=== PATIENT | female | born 1990 | race Caucasian/White ===

== ENCOUNTER 2018-02-20 02:52 | Emergency (ER) | payer OTHER ==
--- NOTE | 2018-02-20 03:49 | ED PDOC ---
HPI: Back Time Seen by Provider: 02/20/18 02:54 Chief Complaint (Nursing): Back Pain Chief Complaint (Provider): back pain History Per: Patient History/Exam Limitations: no limitations Onset/Duration Of Symptoms: Days Current Symptoms Are (Timing): Still Present Exacerbating Factor(s): Turning, Movement Additional Complaint(s): 27 y/o female presents for evaluation of low back pain x 4 days. Patient states pain started after doing laundry on Monday, worsened yesterday after lifting heavy juice and felt a "pop" sensation. Patient states pain now radiating down left leg. No improvement with Tylenol. Denies fever, nausea/vomiting, abdominal pain, dysuria, hematuria, bowel/bladder incontinence. Past Medical History Reviewed: Historical Data, Nursing Documentation, Vital Signs Vital Signs: Last Vital Signs Temp 98.1 F 02/20/18 03:11 Pulse 86 02/20/18 03:11 Resp 18 02/20/18 03:11 BP 110/70 02/20/18 03:11 Pulse Ox 98 02/20/18 03:11 - Medical History PMH: No Chronic Diseases - Surgical History Surgical History: No Surg Hx - Family History Family History: States: No Known Family Hx - Living Arrangements Living Arrangements: With Family - Home Medications Home Medications: Ambulatory Orders Medication Instructions Recorded Cyclobenzaprine [Cyclobenzaprine 10 mg PO BID PRN #14 tab 02/20/18 HCl] Naproxen [Naprosyn] 500 mg PO Q12 PRN #20 tablet 02/20/18 traMADol [Ultram] 50 mg PO Q8 PRN #12 tab 02/20/18 - Allergies Allergies/Adverse Reactions: Allergies Allergy/AdvReac Type Severity Reaction Status Date / Time No Known Allergies Allergy Verified 02/20/18 03:14 Review of Systems ROS Statement: Except As Marked, All Systems Reviewed And Found Negative Musculoskeletal: Positive for: Back Pain Physical Exam - Reviewed Nursing Documentation Reviewed: Yes Vital Signs Reviewed: Yes - Physical Exam Appears: Positive for: Well, Non-toxic, Uncomfortable Head Exam: Positive for: ATRAUMATIC, NORMAL INSPECTION, NORMOCEPHALIC Skin: Positive for: Normal Color Eye Exam: Positive for: Normal appearance ENT: Positive for: Normal ENT Inspection Cardiovascular/Chest: Positive for: Regular Rate, Rhythm Respiratory: Positive for: Normal Breath Sounds Gastrointestinal/Abdominal: Positive for: Normal Exam Back: Positive for: Vertebral Tenderness (mid lspine without edema, skin changes, bony deformity), Muscle Spasm (left lspine paravertebral tenderness, left gluteal tenderness). Negative for: L CVA Tenderness, R CVA Tenderness, Decreased ROM Extremity: Positive for: Normal ROM Neurologic/Psych: Positive for: Alert, Oriented (x3). Negative for: Motor/Sensory Deficits - ECG O2 Sat by Pulse Oximetry: 98 - Other Rad xray lspine X-Ray: Viewed By Me X-Ray Interpretation: no acute findings - Progress ED Course And Treament: -Toradol IM -flexeril PO -percocet PO -lspine xray On re-eval, patient reports improvement of pain Patient educated on findings, discharged with rx Naproxen, Flexeril, Tramadol Advised warm compresses, follow up PMD within 2-3 days Return precautions given Disposition - Clinical Impression Clinical Impression: Low back pain, Lumbar radiculopathy - Patient ED Disposition Is Patient to be Admitted: No Counseled Patient/Family Regarding: Studies Performed, Diagnosis, Need For Followup, Rx Given - Disposition Referrals: [facility] [Outside] [facility] [Outside] Disposition: Routine/Home Disposition Time: 05:45 Condition: IMPROVED Prescriptions: Cyclobenzaprine [Cyclobenzaprine HCl] 10 mg PO BID PRN #14 tab PRN Reason: Muscle Spasm Naproxen [Naprosyn] 500 mg PO Q12 PRN #20 tablet PRN Reason: Pain, Moderate (4-7) traMADol [Ultram] 50 mg PO Q8 PRN #12 tab PRN Reason: Pain, Severe (8-10) Instructions: Low Back Pain in Adults, Radiculopathy Forms: [employer] (Indonesian)
[2018-02-20] MEDS ORDERED: Oxycodone/Acetaminophen 5/325 mg Tab PO ONE (04:55)
[2018-02-20 05:57] VITALS: BP 114/74; PULSE 81; RESP 17; TEMP 98; O2SAT 100
--- NOTE | 2018-02-20 12:04 | RAD ---
Date of service: 02/20/2018 PROCEDURE: Radiographs of the Lumbar Spine. HISTORY: low back pain COMPARISON: No prior. FINDINGS: BONES: Normal alignment. No listhesis. No fracture. DISC SPACES: Unremarkable. OTHER FINDINGS: None. IMPRESSION: Unremarkable radiographs of the lumbar spine.
== END 2018-02-20 05:55 | disposition home or self-care (01) ==
LOC: H.ER 02:52
DX: M54.5 Low back pain (principal); M54.16 Radiculopathy, lumbar region
CPT/HCPCS: 72100; 81025; 96372; 99283; J1885

== ENCOUNTER 2018-03-05 00:04 | Emergency (ER) | payer OTHER ==
[2018-03-05 00:23] VITALS: BMI 29.9
[2018-03-05 00:29] VITALS: RESP 18
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
[2018-03-05 02:14] VITALS: BP 112/76; PULSE 77; TEMP 98.4; O2SAT 99
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
== END 2018-03-05 02:15 | disposition home or self-care (01) ==
LOC: H.ER 00:04
DX: M54.5 Low back pain (principal); M54.2 Cervicalgia; V43.52XA Car driver injured in collision with other type car in traffic accident, initial encounter; Y92.410 Unspecified street and highway as the place of occurrence of the external cause

== ENCOUNTER 2018-05-15 23:41 | Emergency (ER) | payer OTHER ==
[2018-05-15 23:42] VITALS: BMI 29.9
[2018-05-15 23:52] VITALS: RESP 16; O2SAT 100
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
[2018-05-16 01:18] LABS: BASO % 0.5 % (0.0-2.0); EOS % 0.7 % (0.0-4.0); HEMOGLOBIN 11.7 g/dL (12.0-16.0); LYMPH # 2.7 K/uL (1.0-4.3); LYMPH % 37.7 % (20.0-40.0); MEAN CELL VOLUME 84.1 fl (81.0-99.0); MEAN CORPUSCULAR HEMOGLOBIN 27.3 pg (27.0-31.0); MEAN CORPUSCULAR HGB CONC 32.5 g/dL (33.0-37.0); MEAN PLATELET VOLUME 8.2 fl (7.2-11.7); MONO # 0.5 K/uL (0.0-0.8); MONO % 6.5 % (0.0-10.0); NEUT # 3.9 K/uL (1.8-7.0); NEUT % 54.6 % (50.0-75.0); NRBC % 0.1 % (0.0-0.0); RBC 4.27 Mil/uL (3.80-5.20); RED CELL DISTRIBUTION WIDTH 14.1 % (11.5-14.5); WHITE BLOOD COUNT 7.1 K/uL (4.8-10.8)
[2018-05-16 01:28] LABS: ALB/GLOB RATIO 1.2 (1.0-2.1); ALBUMIN 3.7 g/dL (3.5-5.0); ALT/SGPT 46 U/L (9-52); AST/SGOT 43 U/L (14-36); BLOOD UREA NITROGEN 8 mg/dl (7-17); GFR NON-AFRICAN AMERICAN > 60
[2018-05-16 01:38] LABS: SQUAMOUS EPITHIAL 1 /hpf (0-5); URINE BACTERIA MOD (<OCC); URINE BILIRUBIN NEGATIVE (NEGATIVE); URINE BLOOD SMALL (NEGATIVE); URINE CLARITY SLIGHTY-CLOUDY (Clear); URINE COLOR YELLOW (YELLOW); URINE GLUCOSE (UA) NEG (NEGATIVE); URINE LEUKOCYTE ESTERASE TRACE Leu/uL (Negative); URINE PROTEIN NEGATIVE (NEGATIVE); URINE UROBILINOGEN 0.2-1.0 mg/dL (0.2-1.0)
[2018-05-16 03:20] VITALS: BP 104/69; PULSE 70; TEMP 98.1
--- NOTE | 2018-05-16 10:52 | US ---
Date of service: 05/16/2018 PROCEDURE: OB Pelvic Ultrasound HISTORY: ; pain, spotting 03/29/2018 COMPARISON: None available. FINDINGS: UTERUS: Gestational sac: 14 mm diameter equivalent to 5 weeks 4 days. No pole identified at this time Heart rate: Not identified bpm. age (Ultrasound estimated): 5 weeks 4 days Alice-gestational hemorrhage: None. Date of delivery (Ultrasound estimated) : 01/12/2019 Uterus measures 9.3 x 4.5 x 7.3 cm. Normal in size and appearance. CERVIX: Measures 3.4 cm. Long and closed. No cervical abnormality seen. RIGHT OVARY: Measures 2.6 x 2.0 x 1.5 cm. No mass lesion. Normal flow. LEFT OVARY: Not identified FREE FLUID: None. OTHER FINDINGS: None. IMPRESSION: Intrauterine gestational sac of approximately 5 weeks 4 days. pole not visualized. No cardiac activity detected. Early IUP. Follow-up with serial beta HCG and transvaginal ultrasound. No subchorionic hemorrhage. The preliminary findings for this examination were reported by [facility] at 2:47 a.m. on 05/16/2018. There is concurrence of this report with the preliminary findings.
== END 2018-05-16 03:18 | disposition home or self-care (01) ==
LOC: H.ER 23:41
DX: O20.0 Threatened abortion (principal)